=== PATIENT | female | born 1995 | race Caucasian/White ===

== ENCOUNTER 2017-12-26 16:22 | Emergency (ER) | payer BC ==
--- NOTE | 2017-12-26 18:40 | UC ---
Phong Keyes Rebecca, scribed for Lynda Obrien MD on 12/26/17 at 1824 . Lower Extremity/Ankle HPI - HPI Summary HPI Summary: Pt is a 22 y/o F who presents to [facility] accompanied by her boyfriend c/o left inner thigh pain. Pt did leg exercise machines 2 days ago, including adductor exercise. She was initially just sore, then this morning the pain was worse than usual and has gradually worsened throughout the day. She is walking with a limp and on triage, pain was severe, ranked 8/10. Sx aggravated by use, alleviated by rest, unchanged by Ibuprofen and marijuana. Last took Ibuprofen at 1300. Additionally notes the entire LLE feels stiff. Denies erythema, swelling, bruising, numbness, tingling, incontinence and hematuria. - History of Current Complaint Chief Complaint: UCLowerExtremity Stated Complaint: MUSCLE STRAIN Time Seen by Provider: 12/26/17 18:17 Hx Obtained From: Patient Hx Last Menstrual Period: iud Onset/Duration: Gradual Onset, Still Present Severity Currently: Severe Pain Intensity: 8 Pain Scale Used: 0-10 Numeric Aggravating Factor(s): Other - Use Alleviating Factor(s): Rest Able to Bear Weight: Yes - Limping - Allergies/Home Medications Allergies/Adverse Reactions: Allergies Allergy/AdvReac Type Severity Reaction Status Date / Time No Known Allergies Allergy Verified 12/26/17 17:19 Home Medications: Home Medications Escitalopram Oxalate [Lexapro 20 mg] 20 mg PO DAILY 12/26/17 [History Confirmed 12/26/17] PMH/Surg Hx/FS Hx/Imm Hx - Additional Past Medical History Additional PMH: NEGATIVE PMHx: Thyroid disease Previously Healthy: Yes Respiratory History: Asthma, Pneumonia - Surgical History Surgical History: Yes Surgery Procedure, Year, and Place: Breast reduction, 2014 - Family History Known Family History: Positive: Diabetes - Social History Occupation: Employed Full-time - Desk work - [employer] Lives: With Family - Boyfriend Alcohol Use: Weekly Substance Use Type: Marijuana Substance Use Comment - Amount & Last Used: daily Smoking Status (MU): Never Smoked Tobacco - Immunization History Most Recent Influenza Vaccination: 2013 Review of Systems Constitutional: Negative Skin: Negative Eyes: Negative ENT: Negative Respiratory: Negative Cardiovascular: Negative Gastrointestinal: Negative Genitourinary: Negative Motor: Negative Neurovascular: Negative Musculoskeletal: Other: - Left inner thigh pain, LLE stiffness Neurological: Negative Psychological: Negative All Other Systems Reviewed And Are Negative: Yes - Comments Additional Review of Systems Comments: NEGATIVE: Erythema, swelling, bruising, numbness, tingling, incontinence and hematuria Physical Exam - Summary Physical Exam Summary: Vital Signs Reviewed: Yes A+Ox3, no distress Eyes: Conjunctiva Clear ENT: Hearing grossly normal neck: supple Respiratory: Positive: No respiratory distress, No accessory muscle use Cardiovascular: skin color reflect adequate perfusion Musculoskeletal Exam: +SLE with discomfort left medial thigh Pain increases in internal rotation. + flex/ext knee, ankle + point tender mid anterior left thigh Neurological: Positive: Alert, ambulatory without difficulty Psychological: Positive: Normal Response To Family Skin: Positive: no rash, no ecchymosis Triage Information Reviewed: Yes Vital Signs: Initial Vital Signs Temp 98.6 F 12/26/17 17:15 Pulse 64 12/26/17 17:15 Resp 18 12/26/17 17:15 BP 117/67 12/26/17 17:15 Pulse Ox 100 12/26/17 17:15 Diagnostics - Radiology Femur XR Xray Interpretation: No Acute Changes - NO EVIDENCE FOR FRACTURE. Dr. Obrien reviewed this report. Radiology Interpretation Completed By: Radiologist Re-Evaluation - Re-Evaluation First Eval Re-Evaluation Time: 19:13 Comment: With KATHI wrap, her pain improved. Disclosed XR results. f/u [facility] sports medicine Lower Extremity Course/Dx - Course Course Of Treatment: Patient medications reviewed this visit. Pt with discomfort left medial thight after exercising 2 days ago. suspect muscle strain. will check imaging for avulsion fx. motrin/apap. crutches. heat. stretch. kathi wrap for support. sports medicine - Differential Dx/Diagnosis Provider Diagnoses: left medial thigh strain Discharge - Sign-Out/Discharge Documenting (check all that apply): Discharge/Admit/Transfer - Discharge - Discharge Plan Condition: Stable Disposition: HOME Patient Education Materials: Muscle Strain (ED) Forms: *Gen. Provider Communication Referrals: [facility] [Provider Group] No Primary Care Phys,NOPCP [Primary Care Provider] - Additional Instructions: - -wear kathi wrap for comfort and support -apply ice (20 min at a time) every 2-3 hours for the next 24 hours. The, change to heat. Once your muscles are warm, slow gentle stretching exercises are important -use crutches until you can walk normally without a limp -Elevate your leg - this will help with swelling and pain - Alternate ibuprofen (advil, Motrin) 600mg and tylenol every 3 hours for pain. Take with food. Do NOT take for more than 4-5 days - -Contact the sports medicine clinic tomorrow morning to schedule a follow-up appointment. If you have uncontrolled pain or any other concerns, it is recommended you go to the emergency department for further management - Billing Disposition and Condition Condition: STABLE Disposition: Home The documentation as recorded by the Phong morelos Rebecca accurately reflects the service I personally performed and the decisions made by me, Lynda Obrien MD.
[2017-12-26] MEDS ORDERED: Acetaminophen TAB* 325 MG PO ONE (18:51)
[2017-12-26 19:11] VITALS: BP 118/69
--- NOTE | 2017-12-26 19:12 | RAD ---
INDICATION: Medial left thigh pain. TECHNIQUE: 2 views of the left femur were obtained. FINDINGS: The bones are normal alignment. No fracture is seen. No soft tissue calcifications are seen. IMPRESSION: NO EVIDENCE FOR FRACTURE.
== END 2017-12-26 19:21 | disposition home or self-care (01) ==
LOC: UCEAST 16:22
DX: S76.812A Strain of other specified muscles, fascia and tendons at thigh level, left thigh, initial encounter (principal); X58.XXXA Exposure to other specified factors, initial encounter; Y93.B1 Activity, exercise machines primarily for muscle strengthening
CPT/HCPCS: 99212; A9270-GY; G0463